=== PATIENT | female | born 1945 | race African-American/Black ===

== ENCOUNTER 2024-03-27 12:43 | Inpatient (IN) | payer OTHER, BC ==
[2024-03-27 12:50] VITALS: BMI 34.0
[2024-03-27] MEDS ORDERED: ACETAMINOPHEN INJECTION 100 ML IVPB ONE (14:59)
[2024-03-27 15:01] LABS: BASO % 0.4 % (0-2.0); EOS % 0.8 % (0-4.5); HEMOGLOBIN 13.8 GM/dL (10.7-15.3); MCH 30.1 pg (25.7-33.7); MCHC 32.8 g/dl (32.0-36.0); MEAN CELL VOLUME 91.9 fl (80-96); MEAN PLT VOLUME 7.8 fl (7.5-11.1); MONO % 7.4 % (3.8-10.2); NEUT % 86.4 % (42.8-82.8); PLATELET COUNT 219 10^3/uL (134-434); RBC 4.57 M/mm3 (3.60-5.2); RDW 15.9 % (11.6-15.6); WHITE BLOOD COUNT 6.3 K/mm3 (4.0-10.0)
[2024-03-27] MEDS: ACETAMINOPHEN 1000 MG/100 ML BAG IVPB ONE (15:06)
[2024-03-27 15:07] LABS: INR 0.98 (0.83-1.09); PROTHROMBIN TIME (PATIENT) 11.3 SEC (9.7-13.0)
[2024-03-27] MEDS: SODIUM CHLORIDE 0.9% 500 ML INFUS.BAG IV ONE (15:07)
[2024-03-27 15:35] LABS: POTASSIUM 3.5 mmol/L (3.5-5.1)
[2024-03-27 15:36] LABS: CALCIUM 9.6 mg/dL (8.5-10.1)
[2024-03-27 15:37] LABS: ALBUMIN 3.1 g/dl (3.4-5.0); BLOOD UREA NITROGEN 33.5 mg/dL (7-18); MAGNESIUM 2.6 mg/dL (1.8-2.4)
[2024-03-27 15:40] LABS: CREATININE 0.9 mg/dL (0.55-1.3)
[2024-03-27 15:41] LABS: BILIRUBIN,TOTAL 0.4 mg/dL (0.2-1); TOT PROT 6.2 g/dl (6.4-8.2)
[2024-03-27 17:26] LABS: EPI CELLS 4 /uL (0-25.1); HYALINE CASTS 1 /uL (0-3.1); URINE APPEARANCE CLEAR; URINE BACTERIA 3 /uL (0-1359); URINE BILIRUBIN NEGATIVE (NEGATIVE); URINE COLOR YELLOW; URINE GLUCOSE (UA) NEGATIVE (NEGATIVE); URINE KETONE NEGATIVE (NEGATIVE); URINE LEUK ESTERASE TRACE (NEGATIVE); URINE NITRITE NEGATIVE (NEGATIVE); URINE PROTEIN NEGATIVE (NEGATIVE); URINE RBC 12 /uL (0-23.9); URINE UROBILINOGEN 0.2 mg/dL (0.2-1.0); URINE WBC 6 /uL (0-25.8)
[2024-03-27] MEDS ORDERED: ACETAMINOPHEN 1000 MG/100 ML BAG IVPB PRN (23:39)
[2024-03-28] MEDS ORDERED: ACETAMINOPHEN 500 MG TABLET (FP) PO PRN ×2 (04:11)
[2024-03-28] MEDS: ACETAMINOPHEN 500 MG TABLET (FP) PO ONE (04:37)
[2024-03-28] MEDS ORDERED: IBUPROFEN 400 MG TABLET (FP) PO ONE (06:10)
[2024-03-28] MEDS: IBUPROFEN 400 MG TABLET (FP) PO ONE (06:16)
[2024-03-28 07:28] LABS: BASO % 0.9 % (0-2.0); HEMATOCRIT 43.7 % (32.4-45.2); HEMOGLOBIN 14.2 GM/dL (10.7-15.3); LYMPH % 7.1 % (8-40); MCH 30.2 pg (25.7-33.7); MCHC 32.6 g/dl (32.0-36.0); MEAN CELL VOLUME 92.6 fl (80-96); MEAN PLT VOLUME 8.6 fl (7.5-11.1); MONO % 7.7 % (3.8-10.2); NEUT % 82.3 % (42.8-82.8); PLATELET COUNT 201 10^3/uL (134-434); RBC 4.72 M/mm3 (3.60-5.2); RDW 15.4 % (11.6-15.6); WHITE BLOOD COUNT 5.2 K/mm3 (4.0-10.0)
[2024-03-28 07:42] LABS: POTASSIUM 3.5 mmol/L (3.5-5.1)
[2024-03-28 07:46] LABS: ALBUMIN 3.1 g/dl (3.4-5.0); BLOOD UREA NITROGEN 29.8 mg/dL (7-18); CALCIUM 9.8 mg/dL (8.5-10.1); MAGNESIUM 2.3 mg/dL (1.8-2.4)
[2024-03-28 07:49] LABS: CREATININE 0.9 mg/dL (0.55-1.3); PHOSPHOROUS 3.4 mg/dL (2.5-4.9)
[2024-03-28 07:50] LABS: BILIRUBIN,TOTAL 0.7 mg/dL (0.2-1); TOT PROT 6.3 g/dl (6.4-8.2)
[2024-03-28] MEDS ORDERED: RAMIPRIL 5 MG CAPSULE ONE (10:38)
[2024-03-28] MEDS ORDERED: GABAPENTIN 300 MG CAPSULE ONE (10:38)
[2024-03-28] MEDS ORDERED: HYDROCHLOROTHIAZIDE 25 MG TABLET (FP) ONE (10:38)
[2024-03-28] MEDS: HYDROCHLOROTHIAZIDE 25 MG TABLET (FP) PO SCH (12:10)
[2024-03-28] MEDS: RAMIPRIL 5 MG CAPSULE PO SCH (12:10)
[2024-03-28] MEDS: GABAPENTIN 300 MG CAPSULE PO SCH (12:11)
[2024-03-28] MEDS: traMADol HCL 50 MG TABLET PO PRN (13:09)
[2024-03-28] MEDS: NORTRIPTYLINE HCL 10 MG CAPSULE PO SCH (21:33)
[2024-03-29] MEDS ORDERED: RAMIPRIL 5 MG CAPSULE PO SCH (09:26)
[2024-03-29] MEDS: APIXABAN 5 MG TABLET PO SCH (10:05)
[2024-03-29] MEDS: HYDROCHLOROTHIAZIDE 25 MG TABLET (FP) PO SCH (10:05)
[2024-03-29] MEDS: POTASSIUM CHLORIDE TABS 20 MEQ TABLET.ER (FP) PO ONE (13:42)
[2024-03-29] MEDS: LACTATED RINGERS SOLUTION 1,000 ML/1,000 ML INFUS.BAG IV SCH (19:01)
[2024-03-30] MEDS: SODIUM CHLORIDE 500 ML IV STA (10:08)
[2024-03-30] MEDS: POTASSIUM CHLORIDE TABS 20 MEQ TABLET.ER (FP) PO ONE (10:43)
[2024-03-30 10:49] VITALS: RESP 18
[2024-03-30 14:47] VITALS: BP 98/52; PULSE 54; TEMP 97.9
== END 2024-03-30 16:05 | disposition home or self-care (01) | DRG 103 ==
LOC: JER 12:43 → JERBED 20:45 → OBSVTOIN 22:08 → J4S 03-28 12:48
PROVIDERS: ADMIT Internal Medicine; ATTEND Internal Medicine
DX: R51.9 Headache, unspecified (principal); I10 Essential (primary) hypertension; R55 Syncope and collapse; E83.41 Hypermagnesemia; D50.9 Iron deficiency anemia, unspecified; I48.91 Unspecified atrial fibrillation; I87.2 Venous insufficiency (chronic) (peripheral); M54.10 Radiculopathy, site unspecified
CPT/HCPCS: 36415; 70450-TC; 70551-TC; 71045-TC-FY; 71250-TC; 72125-TC; 80053; 81003; 83735; 84100; 84484; 85025; 85610; 86850; 86900; 86901; 87086; 93005; 93010; 93306-TC; 95816; 97116-GP; 97161-GP; 99285-25; G0378; J0131